=== PATIENT | male | born 1990 | race Caucasian/White ===

== ENCOUNTER → 2020-11-06 | Emergency (ER) | payer OTHER ==
[~2020-11-06] VITALS: Ht 180.3 cm; Wt 79.4 kg
[~2020-11-06] MED LIST: NORCO 10-325 T1 EACH PO
[2020-11-06 11:29] VITALS: BP 129/88
== END ==
LOC: ER 11:23
DX: S56.811A Strain of other muscles, fascia and tendons at forearm level, right arm, initial encounter (principal); W20.8XXA Other cause of strike by thrown, projected or falling object, initial encounter; Y93.89 Activity, other specified; Y92.89 Other specified places as the place of occurrence of the external cause; Y99.8 Other external cause status; F17.210 Nicotine dependence, cigarettes, uncomplicated